=== PATIENT | female | born 1965 | race Caucasian/White ===

== ENCOUNTER 2017-12-31 19:49 | Emergency (ER) | payer OTHER ==
[~2017-12-31 19:49] MED LIST: OXYC15TA55 PO; OXYC30TA PO; ROBA750T PO
[2017-12-31 20:09] VITALS: BP 172/95; PULSE 91; RESP 18; TEMP 96.8; O2SAT 98
[2017-12-31] MEDS ORDERED: DULO20 PO (21:08)
[2017-12-31] MEDS ORDERED: BREX1TAB3 PO (21:08)
[2017-12-31 21:32] LABS: AUTOMATED NEUTROPHIL # 5.2 TH/MM3 (1.8-7.7); BASOPHIL % 0.5 % (0.0-2.0); EOSINOPHIL # 0.2 TH/MM3 (0-0.4); EOSINOPHIL % 1.7 % (0.0-4.0); HEMATOCRIT 45.5 % (35.0-46.0); HEMOGLOBIN 15.7 GM/DL (11.6-15.3); LYMPH % 32.6 % (9.0-44.0); LYMPHOCYTE # 2.9 TH/MM3 (1.0-4.8); MEAN CELL VOLUME 86.9 FL (80.0-100.0); MEAN CORPUSCULAR HEMOGLOBIN 29.9 PG (27.0-34.0); MEAN CORPUSCULAR HGB CONC 34.4 % (32.0-36.0); MEAN PLATELET VOLUME 7.7 FL (7.0-11.0); MONO % 5.4 % (0.0-8.0); MONOCYTE # 0.5 TH/MM3 (0-0.9); NEUT % 59.8 % (16.0-70.0); PLATELET COUNT 312 TH/MM3 (150-450); RED BLOOD COUNT 5.24 MIL/MM3 (4.00-5.30); RED CELL DISTRIBUTION WIDTH 13.7 % (11.6-17.2); WHITE BLOOD COUNT 8.8 TH/MM3 (4.0-11.0)
[2017-12-31 21:58] LABS: ALBUMIN 4.3 GM/DL (3.4-5.0); AST (GOT) 18 U/L (15-37); BICARBONATE 27.7 MEQ/L (21.0-32.0); BLOOD UREA NITROGEN 9 MG/DL (7-18); CALCIUM 9.1 MG/DL (8.5-10.1); CHLORIDE 101 MEQ/L (98-107); CREATININE 0.96 MG/DL (0.50-1.00); GLOMERULAR FILTRATION RATE 61 ML/MIN (>89); GLUCOSE,RANDOM 88 MG/DL (74-106); SODIUM (NA) 139 MEQ/L (136-145)
[2017-12-31 21:59] LABS: ALT (GPT) 34 U/L (10-53)
[2017-12-31 22:01] LABS: ALKALINE PHOSPHATASE 104 U/L (45-117); TOTAL BILIRUBIN ADULT 0.3 MG/DL (0.2-1.0); TOTAL PROTEIN 8.1 GM/DL (6.4-8.2)
[2017-12-31] MEDS ORDERED: LORazepam 2 MG TAB PO ONE (22:15)
[2017-12-31] MEDS ORDERED: KETOROLAC TROMETHAMINE 60 MG/2 ML (IM) VIAL IM ONE (22:15)
[2017-12-31 22:17] LABS: ACETAMINOPHEN LESS THAN 2.0 MCG/ML (10.0-30.0)
--- NOTE | 2017-12-31 22:20 | PD ---
HPI Chief Complaint: Psychiatric Symptoms Time Seen by Provider: 22:04 Travel History International Travel<30 days: No Contact w/Intl Traveler<30days: No Traveled to known affect area: No History of Present Illness HPI 52-year-old female presents to the ED under [facility] for psychiatric evaluation. Patient states that she has been on opiate pain medications for several years secondary to chronic back pain and wants to quit. Patient was seen at [facility] in [facility] today and told staff that she is overwhelmed and wants to kill herself if she can't get help. On presentation the patient endorses making these statements but denies suicidal ideation. She endorses nausea, mild dizziness, pain everywhere. She denies headache, palpitations, shortness of breath, abdominal pain, saddle anesthesia, incontinence. She endorses a month history of urinary urgency. She denies dysuria, hematuria. She denies psychiatric history, previous psychiatric hospital hospitalization or previous suicide attempt. She states that she last took a few Lortab this morning. She is a current smoker. PFSH Past Medical History Hx Anticoagulant Therapy: No Bipolar Disorder: Yes Depression: Yes Cardiovascular Problems: No Chemotherapy: No Cerebrovascular Accident: No Diabetes: No Diminished Hearing: No Musculoskeletal: Yes (Chronic back and leg pain) Respiratory: No Immunizations Current: Yes ?: Not Menopausal: Yes Ectopic : Yes Past Surgical History Hysterectomy: No Other Surgery: Yes (BACK SURG, SURG TO REMOVE ECTOPIC , RIGHT CARPAL TUNNEL RELEASE) Social History Alcohol Use: No Tobacco Use: No Substance Use: No Allergies-Medications (Allergen,Severity, Reaction): Coded Allergies: No Known Allergies (Verified Adverse Reaction, Unknown, 12/31/17) Reported Meds & Prescriptions Reported Meds & Active Scripts Active Bactrim DS (Sulfamethoxazole-Trimethoprim) 800-160 Mg Tab 1 Tab PO BID Reported Cymbalta DR (Duloxetine HCl) 20 Mg Capdr 20 Mg PO DAILY Rexulti (Brexpiprazole) 1 Mg Tab 1 Mg PO DAILY Review of Systems Except as stated in HPI: all other systems reviewed are Neg Physical Exam Exam Limitations: Other: (exam performed and revealed salt, limited secondary to concerns) Narrative GENERAL: Well-nourished, well-developed white female in no acute distress. SKIN: Focused skin assessment warm/dry. Well-healed surgical scar in the midline lumbar area. HEAD: Normocephalic. EYES: No scleral icterus. No injection or drainage. NECK: Supple, trachea midline. No JVD or lymphadenopathy. CARDIOVASCULAR: Regular rate and rhythm without murmurs, gallops, or rubs. RESPIRATORY: Breath sounds equal bilaterally. Very mild end expiratory wheezing. No accessory muscle use. GASTROINTESTINAL: Abdomen soft, non-tender, nondistended. Active bowel sounds. MUSCULOSKELETAL: No cyanosis, or edema. Moves extremities spontaneously. 5/5 strength in lower extremities. BACK: Nontender without obvious deformity. No CVA tenderness. Data Data Last Documented VS Vital Signs Date Time Temp Pulse Resp B/P (MAP) Pulse Ox O2 Delivery O2 Flow Rate FiO2 12/31/17 20:09 96.8 91 18 172/95 (120) 98 Orders Orders Complete Blood Count With Diff (12/31/17 20:34) Comprehensive Metabolic Panel (12/31/17 20:34) Psych Screen (12/31/17 20:34) Diet Regular Basic (01/01/18 Breakfast) Drug Screen, Random Urine (12/31/17 20:34) Tylenol (Acetaminophen) (12/31/17 20:34) Ketorolac Inj (Toradol Inj) (12/31/17 22:15) Lorazepam (Ativan) (12/31/17 22:15) Urinalysis - C+S If Indicated (12/31/17 22:12) Urine Culture (12/31/17 20:00) Sulfamet-Trimeth Ds 800-160 Mg (Bactrim (12/31/17 23:30) Labs Laboratory Tests Test 12/31/17 20:00 12/31/17 20:50 Urine Color YELLOW Urine Turbidity HAZY Urine pH 5.5 Urine Specific Saffell 1.013 Urine Protein NEG mg/dL Urine Glucose (UA) NEG mg/dL Urine Ketones NEG mg/dL Urine Occult Blood TRACE Urine Nitrite NEG Urine Bilirubin NEG Urine Urobilinogen LESS THAN 2.0 MG/DL Urine Leukocyte Esterase LARGE Urine RBC 3 /hpf Urine WBC 73 /hpf Urine Squamous Epithelial Cells 8 /hpf Urine Transitional Epithelial Cells <1 /hpf Urine Bacteria RARE /hpf Urine Mucus FEW /lpf Microscopic Urinalysis Comment CULTURE INDICATED Urine Opiates Screen POS Urine Barbiturates Screen NEG Urine Amphetamines Screen NEG Urine Benzodiazepines Screen NEG Urine Cocaine Screen NEG Urine Cannabinoids Screen NEG White Blood Count 8.8 TH/MM3 Red Blood Count 5.24 MIL/MM3 Hemoglobin 15.7 GM/DL Hematocrit 45.5 % Mean Corpuscular Volume 86.9 FL Mean Corpuscular Hemoglobin 29.9 PG Mean Corpuscular Hemoglobin Concent 34.4 % Red Cell Distribution Width 13.7 % Platelet Count 312 TH/MM3 Mean Platelet Volume 7.7 FL Neutrophils (%) (Auto) 59.8 % Lymphocytes (%) (Auto) 32.6 % Monocytes (%) (Auto) 5.4 % Eosinophils (%) (Auto) 1.7 % Basophils (%) (Auto) 0.5 % Neutrophils # (Auto) 5.2 TH/MM3 Lymphocytes # (Auto) 2.9 TH/MM3 Monocytes # (Auto) 0.5 TH/MM3 Eosinophils # (Auto) 0.2 TH/MM3 Basophils # (Auto) 0.0 TH/MM3 CBC Comment DIFF FINAL Differential Comment Blood Urea Nitrogen 9 MG/DL Creatinine 0.96 MG/DL Random Glucose 88 MG/DL Total Protein 8.1 GM/DL Albumin 4.3 GM/DL Calcium Level 9.1 MG/DL Alkaline Phosphatase 104 U/L Aspartate Amino Transf (AST/SGOT) 18 U/L Alanine Aminotransferase (ALT/SGPT) 34 U/L Total Bilirubin 0.3 MG/DL Sodium Level 139 MEQ/L Potassium Level 4.0 MEQ/L Chloride Level 101 MEQ/L Carbon Dioxide Level 27.7 MEQ/L Anion Gap 10 MEQ/L Estimat Glomerular Filtration Rate 61 ML/MIN Acetaminophen Level LESS THAN 2.0 MCG/ML MDM Medical Decision Making Medical Screen Exam Complete: Yes Emergency Medical Condition: Yes Differential Diagnosis Chronic pain versus UTI versus Adjustment disorder versus anxiety versus bipolar versus depression versus dementia versus electrolyte disorder versus malingering versus mood disorder versus ODD versus psychosis versus PTSD versus schizophrenia versus schizoaffective disorder versus substance-induced mood disorder versus other Narrative Course 52-year-old female presents to the ED under [facility] for psychiatric evaluation after stating that she would kill herself if she couldn't get help for addiction while at [facility] in [facility] today. Patient states is due to opiate pain medications for several years secondary to chronic back pain. Patient endorses making the statements but denies suicidal ideation on presentation. She endorses pain everywhere and complains of one-month history of urinary urgency. Denies psychiatric history, psychiatric hospitalization or previous suicide attempt. She took a dose of Lortab this morning. She is a current smoker. Vitals reviewed. Exam unremarkable. Patient was administered 2 mg Ativan by mouth and 60 mg Toradol IV. CBC and CMP are unremarkable. Tox screen positive for opiates. UA hazy, trace occult blood, large leukocyte esterase, 73 WBCs, rare bacteria. Culture pending. Patient's prescribed Bactrim DS every 12 hours 3 days. First dose administered in the ED. Patient is medically clear for psychiatric evaluation. Diagnosis Primary Impression: Urinary tract infection Qualified Codes: N39.0 - Urinary tract infection, site not specified Additional Impression: Medical clearance for psychiatric admission Scripts Sulfamethoxazole-Trimethoprim (Bactrim DS) 800-160 Mg Tab 1 TAB PO BID for Infection, #6 TAB 0 Refills Prov: Kelly Salguero MD 12/31/17 Susan Ruiz Dec 31, 2017 22:20
[2017-12-31 23:18] LABS: BACTERIA, URINE RARE /hpf; BILIRUBIN, URINE NEG (NEG); BLOOD, URINE TRACE (NEG); GLUCOSE,URINE NEG (NEG); KETONE, URINE NEG (NEG); MUCUS URINE FEW /lpf (OCC); NITRITE,URINE NEG (NEG); PH, URINE 5.5 (5.0-8.5); SQUAMOUS EPITHELIAL CELL URINE 8 /hpf (0-5); TRANSITIONAL EPI CELLS, URINE <1 /hpf; URINE COLOR YELLOW (YELLW/STRAW); URINE LEUKOCYTE ESTERASE LARGE (NEG)
[2017-12-31] MEDS ORDERED: BACT800T5 PO (23:24)
[2017-12-31] MEDS: SULFAMETHOXAZOLE-TRIMETHOPRIM DS 800-160 MG TAB PO SCH (23:30)
[2018-01-01 07:36] VITALS: BP 154/88; PULSE 90; RESP 18; O2SAT 98
[2018-01-01] MEDS: SULFAMETHOXAZOLE-TRIMETHOPRIM DS 800-160 MG TAB PO SCH ×2 (09:23→20:55)
[2018-01-01 11:36] VITALS: BP 145/78
[2018-01-01] MEDS ORDERED: LORazepam 2 MG TAB PO ONE (15:15)
[2018-01-01] MEDS ORDERED: ONDANSETRON ODT 4 MG TAB PO ONE (22:45)
[2018-01-02 02:12] VITALS: BP 127/67; PULSE 92; RESP 18; TEMP 97.8; O2SAT 96
== END 2018-01-02 04:02 ==
LOC: NEPD 19:49 → NEPJ 01-02 04:02
DX: N39.0 Urinary tract infection, site not specified (principal); G89.29 Other chronic pain; M54.9 Dorsalgia, unspecified; R45.851 Suicidal ideations; F31.9 Bipolar disorder, unspecified
CPT/HCPCS: 80053; 80307; 81001; 85025; 87086; 96372; 99285; J1885